=== PATIENT | male | born 1975 | race Caucasian/White ===

== ENCOUNTER 2019-10-11 13:58 | Emergency (ER) | payer OTHER ==
[~2019-10-11] VITALS: Ht 165.1 cm; Wt 61.4 kg
[2019-10-11] MEDS ORDERED: HTN PO (14:07)
[2019-10-11] MEDS ORDERED: METF-960 PO (14:07)
[2019-10-11] MEDS ORDERED: GLIP5 PO (14:07)
[2019-10-11] MEDS ORDERED: KETOROLAC TROMETHAMINE 60 MG/2 ML VIAL IM ONE (15:15)
[2019-10-11] MEDS ORDERED: CYCLOBENZAPRINE HCL 10 MG TABLET PO ONE (15:15)
[2019-10-11 16:36] VITALS: BP 144/86
== END 2019-10-11 16:57 | disposition home or self-care (01) ==
LOC: EMS 13:59
DX: M62.838 Other muscle spasm (principal); F17.210 Nicotine dependence, cigarettes, uncomplicated; E11.9 Type 2 diabetes mellitus without complications; E78.00 Pure hypercholesterolemia, unspecified; I10 Essential (primary) hypertension; Z79.84 Long term (current) use of oral hypoglycemic drugs
CPT/HCPCS: 82962; 96372; 99283; 99406; J1885